=== PATIENT | male | born 1940 | race Caucasian/White ===

== ENCOUNTER 2017-10-18 05:07 | Observation (INO) | payer OTHER ==
[~2017-10-18] VITALS: Ht 172.7 cm; Wt 131.8 kg
[~2017-10-18 05:07] MED LIST: ALLOPURINOL100 MG PO; AMOX TR-K CLV1 EAC4 PO; ASPIR 8181 M1 PO; ASPIRIN81 M2 PO; Ascorbic Acid,Ester- PO; CYANOCOBALAM1000 MCG PO; DIOVAN80 MG PO; DOXYCYCLINE HY100 MG PO; ERYTHROMYC1 APPLICAT LEFT EYE; GABAPENTIN300 MG PO; K-DUR20 MEQ PO; Keflex PO; LASIX40 MG PO; LASIX80 MG PO; Neurontin PO; PREDNISONE2.5 MG PO; PREDNISONE5 MG PO; PREVACID15 MG PO; Prevacid PO; TOPROL XL50 MG PO; TOPROL XL6.25 MG PO; TYLENOL WITH C1 EACH PO; Toprol XL PO; VITAMIN C1000 MG PO; Vibramycin, Doryx PO; Zyloprim PO; predniSONE PO
[2017-10-18 05:48] LABS: EOSINOPHIL COUNT 0.1 K/uL (0-0.3); HEMATOCRIT 48.8 % (38.0-50.0); IMMATURE GRANULOCYTE (%) 2.3 % (0.0-0.7); IMMATURE GRANULOCYTE COUNT 0.2 K/uL; INSTRUMENT ABS NEUTROPHIL CT 6.9 K/uL; LYMPHOCYTE COUNT 1.6 K/uL (1.0-2.8); MCH 33.7 PG (29.0-34.0); MCHC 34.2 G/DL (30.0-36.0); MCV 98.4 FL (86-99); MEAN PLAT.VOLUME 9.5 uM^3 (9.0-12.4); MONOCYTE (%) 6.6 % (3-12); MONOCYTE COUNT 0.6 K/uL (0-0.8); NEUTROPHIL (%) 72.6 % (45-76); NEUTROPHIL COUNT 6.9 K/uL (1.8-6.4); PLATELET COUNT 126 K/uL (156-360); RBC DIS.WIDTH-CV 14.6 % (11.8-14.6); RBC DIS.WIDTH-SD 53.2 % (39-53); RED BLOOD COUNT 4.96 M/uL (4.00-5.50); WHITE BLOOD COUNT 9.6 K/uL (4.1-10.2)
[2017-10-18 06:02] LABS: PTT 27.1 SEC (25-37)
[2017-10-18 06:06] LABS: CHLORIDE 96 mEq/L (99-109); POTASSIUM 3.5 mEq/L (3.7-5.4); SODIUM 138 mEq/L (136-147)
[2017-10-18 06:08] LABS: GLUCOSE 143 mg/dL (70-99)
[2017-10-18 06:09] LABS: ANION GAP 13 MEQ/L (2-14); TROP-I INTERPRETATION NEGATIVE; TROPONIN-I 0.05 ng/mL (0.0-0.30)
[2017-10-18 06:10] LABS: TOTAL BILIRUBIN 1.7 mg/dL (0.0-1.0)
[2017-10-18 06:12] LABS: ALKALINE PHOSPHATASE 82 IU/L (3-129); GFR ESTIMATE (CALCULATED) 37 mL/min/
[2017-10-18 06:13] LABS: UREA NITROGEN (BUN) 46 mg/dL (9-23)
[2017-10-18 06:15] LABS: LIPASE 56 U/L (1.0-51.0)
[2017-10-18 06:38] LABS: PROTHROMBIN TIME 10.9 SEC (10.2-12.9)
[2017-10-18 07:07] LABS: ADD MIUA? NO; BILIRUBIN NEGATIVE; BLOOD NEGATIVE; COLOR YELLOW ((YELLOW)); GLUCOSE (STRIP) 50; KETONES NEGATIVE; LEUKOCYTES NEGATIVE; NITRITE NEGATIVE; PROTEIN (STRIP) NEGATIVE; UCUL ADDED? NO; UROBILINOGEN 0.2 MG/DL (0.2-1.0)
[2017-10-18] MEDS ORDERED: PREDNISONE20 MG PO (08:30)
[2017-10-18] MEDS ORDERED: TYLENOL WITH C1 EACH PO (08:31)
[2017-10-18] MEDS ORDERED: ISOSORBIDE PO (08:34)
[2017-10-18 09:18] VITALS: BP 124/61
[2017-10-18 11:54] VITALS: BP 95/54
[2017-10-18 13:08] LABS: TROP-I INTERPRETATION NEGATIVE; TROPONIN-I 0.05 ng/mL (0.0-0.30)
[2017-10-18 16:17] VITALS: BP 96/52
[2017-10-18 19:12] LABS: TROP-I INTERPRETATION NEGATIVE; TROPONIN-I 0.04 ng/mL (0.0-0.30)
[2017-10-18 19:27] VITALS: BP 99/51
[2017-10-19 00:35] VITALS: BP 102/53
[2017-10-19 04:00] VITALS: BP 124/53
[2017-10-19 06:01] LABS: ANION GAP 6 MEQ/L (2-14); CHLORIDE 100 MEQ/L (99-109); GFR ESTIMATE (CALCULATED) 29 mL/min/; POTASSIUM 3.6 MEQ/L (3.7-5.4); SAMPLE HEMOLYSIS CHECK 0; SAMPLE ICTERIC CHECK 0; SAMPLE LIPEMIA CHECK 0; SODIUM 138 MEQ/L (136-147); UREA NITROGEN (BUN) 54 mg/dL (9-23)
[2017-10-19 06:02] LABS: GLUCOSE 107 mg/dL (70-99)
[2017-10-19 09:51] VITALS: BP 141/62
[2017-10-19 11:46] VITALS: BP 114/56
[2017-10-19] MEDS ORDERED: BUMEX1 MG PO (15:24)
[2017-10-19 15:50] VITALS: BP 129/60
== END 2017-10-19 19:53 | disposition home or self-care (01) ==
LOC: EME 05:07 → EDOF 07:50 → 5WEST 07:50 → EDOF 07:50 → ENRESERV 07:57 → 5WEST 08:50
PROVIDERS: Emergency Medicine; Internal Medicine
DX: R07.9 Chest pain, unspecified (principal); I87.332 Chronic venous hypertension (idiopathic) with ulcer and inflammation of left lower extremity; L97.829 Non-pressure chronic ulcer of other part of left lower leg with unspecified severity; E86.0 Dehydration; E87.8 Other disorders of electrolyte and fluid balance, not elsewhere classified; N18.3 Chronic kidney disease, stage 3 (moderate); D86.9 Sarcoidosis, unspecified; M79.89 Other specified soft tissue disorders; L03.116 Cellulitis of left lower limb; Z85.528 Personal history of other malignant neoplasm of kidney; Z90.5 Acquired absence of kidney; Z90.49 Acquired absence of other specified parts of digestive tract; Z87.19 Personal history of other diseases of the digestive system; G47.33 Obstructive sleep apnea (adult) (pediatric); K21.9 Gastro-esophageal reflux disease without esophagitis; M19.90 Unspecified osteoarthritis, unspecified site; M54.2 Cervicalgia; R06.02 Shortness of breath; I45.10 Unspecified right bundle-branch block; R00.0 Tachycardia, unspecified; D69.6 Thrombocytopenia, unspecified; K57.30 Diverticulosis of large intestine without perforation or abscess without bleeding; Z79.52 Long term (current) use of systemic steroids; Z79.82 Long term (current) use of aspirin; Z88.6 Allergy status to analgesic agent
CPT/HCPCS: 70450; 71010; 74176; 78582; 80048; 80053; 81003; 83605; 83690; 84484; 85025; 85610; 85730; 87040; 87493; 87502; 93005; 99202; 99281; 99285; A9540; A9567; G0378; J0690; J1644; J2405; J3010; J7030; J7040; J7120; J7512